=== PATIENT | male | born 1980 | race Caucasian/White ===

== ENCOUNTER 2017-06-20 07:02 | Outpatient (CLI) | payer OTHER ==
[2017-06-20 07:28] LABS: BASOPHILS % 0.5 (0.0-1.5); MEAN CORPUSCULAR HEMOGLOBIN 30.5 pg (28.0-34.0); MEAN CORPUSCULAR VOLUME 91.5 fl (80.0-100.0); NEUTROPHILS # 6.4 # k/uL (1.4-7.7)
[2017-06-20 07:47] LABS: eGFR (African) > 60; eGFR (Non-African) > 60
== END 2017-06-20 07:03 ==
LOC: LAB 07:02
PROVIDERS: ATTEND Family Medicine
DX: Z00.00 Encounter for general adult medical examination without abnormal findings (principal)
CPT/HCPCS: 36415; 80053; 80061; 85025